=== PATIENT | male | born 1970 | race Caucasian/White ===

== ENCOUNTER 2017-11-07 17:09 | Emergency (ER) | payer BC, OTHER ==
[2017-11-07] MEDS ORDERED: Aspirin 81 MG Tab.Chew PO ONE (17:50)
[2017-11-07] MEDS ORDERED: Alum Hydrox/Mag Hydrox/Simeth 30 ML, Lidocaine 2% 15 ML PO ONE ×2 (17:58)
--- NOTE | 2017-11-07 17:58 | EDM.PDOC ---
<TulioGabriella kiser - Last Filed: 11/07/17 18:02> ED HPI GENERAL MEDICAL PROBLEM - General Chief Complaint: Chest Pain Stated Complaint: CHEST PAIN Time Seen by Provider: 11/07/17 17:54 Source of Information: Reports: Patient History Limitations: Reports: No Limitations - History of Present Illness INITIAL COMMENTS - FREE TEXT/NARRATIVE: Patient is a 46 YO male who presents today for chest pain. He states this started about 11 this morning. He described the pain as pressure in the left chest about 4 intercostal space mid clavicular which radiates around to his back and also has some pain in the left medial arm. Nothing seems to make the pain worse and nothing makes it better. He has GERD and did take several TUMS this morning which did not improve the pain. He was placed on omeprazole for 14 days which relieved his pain. He has now been off this for 1.5 weeks and the pain has returned. He states this pain that he is experiencing does not feel like GERD to him. He has no personal history of heart disease, HTN or diabetes. He also denies family history of heart disease. He denies smoking but does chew 1 can every 4 days, drinks 1 beer per night and denies any recreational drug use. He denies SOB, dizziness, cough, fever, chills, or diaphoresis. He states he has not been sick within the last couple weeks. - Related Data Allergies Allergy/AdvReac Type Severity Reaction Status Date / Time No Known Allergies Allergy Verified 11/07/17 17:19 Home Meds: Home Meds Lisinopril [Zestril] 20 mg PO ASDIRECTED 12/28/13 [History] Metoprolol Succinate [Toprol XL] 25 mg PO DAILY 12/28/13 [History] Sertraline HCl [Zoloft] 50 mg PO DAILY 12/28/13 [History] Course - Vital Signs Last Recorded V/S: Last Vital Signs Temp 97.9 F 11/07/17 17:24 Pulse 69 11/07/17 17:24 Resp 22 H 11/07/17 17:24 BP 143/86 H 11/07/17 17:24 Pulse Ox 100 11/07/17 17:24 - Orders/Labs/Meds Orders: Active Orders 24 hr Category Date Time Status EKG 12 Lead [EKG Documentation Completion] [RC] STAT Care 11/07/17 17:49 Active Labs: Laboratory Tests 11/07/17 11/07/17 11/07/17 Range/Units 17:20 17:20 17:20 WBC 11.07 H (4.23-9.07) K/mm3 RBC 5.16 (4.63-6.08) M/mm3 Hgb 16.0 (13.7-17.5) gm/L Hct 46.1 (40.1-51.0) % MCV 89.3 (79.0-92.2) fl MCH 31.0 (25.7-32.2) pg MCHC 34.7 (32.2-35.5) g/dl RDW Std Deviation 41.7 (35.1-43.9) fL Plt Count 264 (163-337) K/mm3 MPV 11.5 (9.4-12.3) fl Neutrophils % (Manual) 44 (40-60) % Band Neutrophils % 0 (0-10) % Lymphocytes % (Manual) 36 (20-40) % Atypical Lymphs % 0 % Monocytes % (Manual) 20 H (2-10) % Eosinophils % (Manual) 0 L (0.8-7.0) % Basophils % (Manual) 0 L (0.2-1.2) Platelet Estimate Adequate Plt Morphology Comment Normal RBC Morph Comment Normal D-Dimer, Quantitative < 0.19 L (0.19-0.50) mg/L Sodium (136-145) mEq/L Potassium (3.5-5.1) mEq/L Chloride (98-107) mEq/L Carbon Dioxide (21-32) mEq/L Anion Gap (5-15) BUN (7-18) mg/dL Creatinine (0.7-1.3) mg/dL Est Cr Clr Drug Dosing mL/min Estimated GFR (MDRD) (>60) mL/min BUN/Creatinine Ratio (14-18) Glucose (74-106) mg/dL Calcium (8.5-10.1) mg/dL Total Bilirubin (0.2-1.0) mg/dL AST (15-37) U/L ALT (16-63) U/L Alkaline Phosphatase (46-116) U/L CK-MB (CK-2) 1.1 (0-3.6) ng/ml Troponin I < 0.017 (0.00-0.056) ng/mL C-Reactive Protein < 0.2 (<1.0) mg/dL Total Protein (6.4-8.2) g/dl Albumin (3.4-5.0) g/dl Globulin gm/dL Albumin/Globulin Ratio (1-2) 11/07/17 Range/Units 17:20 WBC (4.23-9.07) K/mm3 RBC (4.63-6.08) M/mm3 Hgb (13.7-17.5) gm/L Hct (40.1-51.0) % MCV (79.0-92.2) fl MCH (25.7-32.2) pg MCHC (32.2-35.5) g/dl RDW Std Deviation (35.1-43.9) fL Plt Count (163-337) K/mm3 MPV (9.4-12.3) fl Neutrophils % (Manual) (40-60) % Band Neutrophils % (0-10) % Lymphocytes % (Manual) (20-40) % Atypical Lymphs % % Monocytes % (Manual) (2-10) % Eosinophils % (Manual) (0.8-7.0) % Basophils % (Manual) (0.2-1.2) Platelet Estimate Plt Morphology Comment RBC Morph Comment D-Dimer, Quantitative (0.19-0.50) mg/L Sodium 138 (136-145) mEq/L Potassium 3.9 (3.5-5.1) mEq/L Chloride 101 (98-107) mEq/L Carbon Dioxide 29 (21-32) mEq/L Anion Gap 11.9 (5-15) BUN 12 (7-18) mg/dL Creatinine 1.0 (0.7-1.3) mg/dL Est Cr Clr Drug Dosing 103.47 mL/min Estimated GFR (MDRD) > 60 (>60) mL/min BUN/Creatinine Ratio 12.0 L (14-18) Glucose 106 (74-106) mg/dL Calcium 9.6 (8.5-10.1) mg/dL Total Bilirubin 0.6 (0.2-1.0) mg/dL AST 30 (15-37) U/L ALT 33 (16-63) U/L Alkaline Phosphatase 56 (46-116) U/L CK-MB (CK-2) (0-3.6) ng/ml Troponin I (0.00-0.056) ng/mL C-Reactive Protein (<1.0) mg/dL Total Protein 7.7 (6.4-8.2) g/dl Albumin 4.4 (3.4-5.0) g/dl Globulin 3.3 gm/dL Albumin/Globulin Ratio 1.3 (1-2) Meds: Medications Discontinued Medications Generic Name Dose Route Start Last Admin Trade Name Beata PRN Reason Stop Dose Admin Aspirin 324 mg 11/07/17 17:50 11/07/17 17:59 Aspirin PO 11/07/17 17:51 324 mg ONETIME ONE Administration Al Hydroxide/Mg Hydroxide 30 0 ml 11/07/17 17:58 11/07/17 18:04 ml/ Lidocaine HCl 15 ml PO 11/07/17 17:59 45 ml ONETIME ONE Administration Sodium Chloride 1,000 mls @ 100 mls/hr 11/07/17 18:00 11/07/17 17:58 Normal Saline IV 100 mls/hr ASDIRECTED DAKOTAH Administration Departure - Departure Disposition: Home, Self-Care 01 Clinical Impression: Anterior chest wall pain GERD (gastroesophageal reflux disease) Qualifiers: Esophagitis presence: esophagitis presence not specified Qualified Code(s): K21.9 - Gastro-esophageal reflux disease without esophagitis Instructions: Food Choices for Gastroesophageal Reflux Disease, Adult, Chest Wall Pain, [id number], Gastroesophageal Reflux Disease, Adult, [id number] Referrals: Kike Soto Jr, MD [Primary Care Provider] - Forms: ED Department Discharge Additional Instructions: Suspect cause of anterior lateral chest discomfort is musculoskeletal in nature. Treatment will be Tylenol 650 mg every 4-6 hours as needed for pain. Refrain from any activities that cause worsening pain. In addition component of the discomfort may be associated with GERD. Start taking Prilosec 20 mg half- hour prior to eating breakfast every morning. Do not eat or drink within 4 hours ago in the bed. Minimize intake of caffeinated beverages, chocolates, spicy foods, or any other aggravating foods. Follow-up with your primary care provider in the next week. Return to the ED if you develop any new or worsening symptoms. - My Orders Last 24 Hours: My Active Orders 11/07/17 17:49 EKG 12 Lead [EKG Documentation Completion] [RC] STAT - Assessment/Plan Last 24 Hours: My Active Orders 11/07/17 17:49 EKG 12 Lead [EKG Documentation Completion] [RC] STAT <Gokul Kelley O - Last Filed: 11/08/17 08:40> ED HPI GENERAL MEDICAL PROBLEM - General Source of Information: Reports: Patient History Limitations: Reports: No Limitations Middle Chest Pain Score (Numeric/FACES): 4 Past Medical History HEENT History: Reports: Impaired Vision Cardiovascular History: Reports: Hypertension Gastrointestinal History: Reports: GERD Neurological History: Reports: Concussion Psychiatric History: Reports: Anxiety - Past Surgical History GI Surgical History: Reports: Colonoscopy, EGD Social & Family History - Family History Family Medical History: Noncontributory Cardiac: Reports: Hypertension, [place] Endocrine/Metabolic: Reports: Diabetes, type II Oncologic: Reports: Breast - Tobacco Use Years of Tobacco use: 20 Packs/Tins Daily: 0.2 - Caffeine Use Caffeine Use: Reports: Coffee - Alcohol Use Days Per Week of Alcohol Use: 7 Number of Drinks Per Day: 2 Total Drinks Per Week: 14 - Recreational Drug Use Recreational Drug Use: No ED ROS GENERAL - Review of Systems Review Of Systems: See Below Constitutional: Denies: Fever, Chills, Decreased Appetite HEENT: Reports: No Symptoms Respiratory: Reports: Pleuritic Chest Pain (left sided). Denies: Shortness of Breath, Cough, Sputum, Hemoptysis Cardiovascular: Reports: Chest Pain. Denies: Dyspnea on Exertion, Lightheadedness, Palpitations, Syncope GI/Abdominal: Reports: Abdominal Pain (faint RUQ pain, gallbladder has been worked up with no abnormal finding. ) Musculoskeletal: Reports: Arm Pain (left arm discomfort) Skin: Reports: No Symptoms Neurological: Reports: No Symptoms Psychiatric: Reports: No Symptoms ED EXAM, GENERAL - Physical Exam Exam: See Below Exam Limited By: No Limitations General Appearance: Alert, WD/WN, No Apparent Distress Ears: Hearing Grossly Normal Nose: Normal Inspection Throat/Mouth: Normal Voice, No Airway Compromise Neck: Normal Inspection, Supple Respiratory/Chest: No Respiratory Distress, Lungs Clear, Normal Breath Sounds, No Accessory Muscle Use, Other (Tenderness along the lateral aspect of the 3 and 4th rib with palpation. no ecchymosis, rash, bony abnormalities, or swelling.) Cardiovascular: Normal Peripheral Pulses, Regular Rate, Rhythm, No Murmur Peripheral Pulses: 4+: Radial (L), Radial (R) GI/Abdominal: Normal Bowel Sounds, Soft, Non-Tender, No Organomegaly, No Distention Back Exam: Normal Inspection Extremities: Normal Inspection, Normal Range of Motion, Non-Tender Neurological: Alert, Oriented, CN II-XII Intact, Normal Cognition, No Motor/ Sensory Deficits Psychiatric: Normal Affect, Normal Mood Skin Exam: Warm, Dry, Intact, Normal Color, No Rash Course - Orders/Labs/Meds Labs: Laboratory Tests 11/07/17 11/07/17 11/07/17 Range/Units 17:20 17:20 17:20 WBC 11.07 H (4.23-9.07) K/mm3 RBC 5.16 (4.63-6.08) M/mm3 Hgb 16.0 (13.7-17.5) gm/L Hct 46.1 (40.1-51.0) % MCV 89.3 (79.0-92.2) fl MCH 31.0 (25.7-32.2) pg MCHC 34.7 (32.2-35.5) g/dl RDW Std Deviation 41.7 (35.1-43.9) fL Plt Count 264 (163-337) K/mm3 MPV 11.5 (9.4-12.3) fl Neutrophils % (Manual) 44 (40-60) % Band Neutrophils % 0 (0-10) % Lymphocytes % (Manual) 36 (20-40) % Atypical Lymphs % 0 % Monocytes % (Manual) 20 H (2-10) % Eosinophils % (Manual) 0 L (0.8-7.0) % Basophils % (Manual) 0 L (0.2-1.2) Platelet Estimate Adequate Plt Morphology Comment Normal RBC Morph Comment Normal D-Dimer, Quantitative < 0.19 L (0.19-0.50) mg/L Sodium (136-145) mEq/L Potassium (3.5-5.1) mEq/L Chloride (98-107) mEq/L Carbon Dioxide (21-32) mEq/L Anion Gap (5-15) BUN (7-18) mg/dL Creatinine (0.7-1.3) mg/dL Est Cr Clr Drug Dosing mL/min Estimated GFR (MDRD) (>60) mL/min BUN/Creatinine Ratio (14-18) Glucose (74-106) mg/dL Calcium (8.5-10.1) mg/dL Total Bilirubin (0.2-1.0) mg/dL AST (15-37) U/L ALT (16-63) U/L Alkaline Phosphatase (46-116) U/L CK-MB (CK-2) 1.1 (0-3.6) ng/ml Troponin I < 0.017 (0.00-0.056) ng/mL C-Reactive Protein < 0.2 (<1.0) mg/dL Total Protein (6.4-8.2) g/dl Albumin (3.4-5.0) g/dl Globulin gm/dL Albumin/Globulin Ratio (1-2) /07/27 Range/Units 17:20 WBC (4.23-9.07) K/mm3 RBC (4.63-6.08) M/mm3 Hgb (13.7-17.5) gm/L Hct (40.1-51.0) % MCV (79.0-92.2) fl MCH (25.7-32.2) pg MCHC (32.2-35.5) g/dl RDW Std Deviation (35.1-43.9) fL Plt Count (163-337) K/mm3 MPV (9.4-12.3) fl Neutrophils % (Manual) (40-60) % Band Neutrophils % (0-10) % Lymphocytes % (Manual) (20-40) % Atypical Lymphs % % Monocytes % (Manual) (2-10) % Eosinophils % (Manual) (0.8-7.0) % Basophils % (Manual) (0.2-1.2) Platelet Estimate Plt Morphology Comment RBC Morph Comment D-Dimer, Quantitative (0.19-0.50) mg/L Sodium 138 (136-145) mEq/L Potassium 3.9 (3.5-5.1) mEq/L Chloride 101 (98-107) mEq/L Carbon Dioxide 29 (21-32) mEq/L Anion Gap 11.9 (5-15) BUN 12 (7-18) mg/dL Creatinine 1.0 (0.7-1.3) mg/dL Est Cr Clr Drug Dosing 103.47 mL/min Estimated GFR (MDRD) > 60 (>60) mL/min BUN/Creatinine Ratio 12.0 L (14-18) Glucose 106 (74-106) mg/dL Calcium 9.6 (8.5-10.1) mg/dL Total Bilirubin 0.6 (0.2-1.0) mg/dL AST 30 (15-37) U/L ALT 33 (16-63) U/L Alkaline Phosphatase 56 (46-116) U/L CK-MB (CK-2) (0-3.6) ng/ml Troponin I (0.00-0.056) ng/mL C-Reactive Protein (<1.0) mg/dL Total Protein 7.7 (6.4-8.2) g/dl Albumin 4.4 (3.4-5.0) g/dl Globulin 3.3 gm/dL Albumin/Globulin Ratio 1.3 (1-2) - Re-Assessments/Exams Free Text/Narrative Re-Assessment/Exam: Patient is a 46 year old male who presents to the E.D. complaining of left lateral chest wall pain increased with palpation. Pain does radiate down the left arm as well. States the pain came on at 11 am today. Initially believed it was related to acid reflux and took 8 tums with no relief. States one month prior was taking a PPI for two weeks and since stopping has noticed increased acid reflux over the last two weeks. States the pain is mild to moderate intensity. Does not recall any trauma or specific activity that would have caused the pain. Normally has RUQ pain described as minimal. Has had a full work up of his GB with no issues noted. This is unchanged. Denies fever, cough , sob, n/v, hx pe/dvt, or any additional complaints. patient admits he does not go to the doctor that often and does not have a first degree relative with heart disease. He chews tobacco. Alcohol social. Denies any recreational drug use. PMH: GERD, HTN, anxiety. Current medications: zestril, toprol xl, zoloft. Patient was in the ED 44 minutes prior to evaluation. Dr. Rodrigues has already placed orders. IV established within normal saline 100 mls an hour and aspirin 324 mg by mouth. I ordered GI cocktail PO. Initial labs and studies include CBC, chem 14, CRP, CK-MB, troponin, d-dimer, chest x-ray one view, and EKG. EKG revealed: Sinus rhythm at a rate of 61. QT mildly prolonged. T-wave inversion in leads 3 and flattened in aVF. No signs of ischemia. Chest x-ray impression: No acute findings noted. Final interpretation is pending. Reviewed with Dr. Rodrigues. Labs revealed:CBC was essentially normal. D-Dimer was <0.19. CKMB is 1.1. Troponin <0.017. CRP <0.2. CMP was not initially ordered. 11/07/17 19:18 Reassessment, patients pain has improved with the GI cocktail. VSS. Pain was reproducible with palpation. Suspect cause musculoskeletal in nature all though some of the symptoms did improve with GI cocktail. Patient will start prilosec 20mg PO 1/2 hr prior to breakfast every a.m. Discharge instructions as documented. 11/07/17 19:37 CMP within normal limits. Departure - Departure Time of Disposition: 19:22 Condition: Good
[2017-11-07] MEDS ORDERED: Sodium Chloride 0.9% 1,000 ML IV SCH (18:00)
--- NOTE | 2017-11-08 07:25 | CR ---
Chest: Portable view of the chest was obtained. Comparison: No previous study. Heart size and mediastinum are normal. Lungs are clear. Bony structures are unremarkable. Impression: 1. Nothing acute is seen on portable chest x-ray. Diagnostic code #1
== END 2017-11-07 19:40 | disposition home or self-care (01) ==
LOC: JD.ED 17:09
DX: K21.9 Gastro-esophageal reflux disease without esophagitis (principal); I10 Essential (primary) hypertension; Z79.899 Other long term (current) drug therapy; Z79.82 Long term (current) use of aspirin
CPT/HCPCS: 36415; 71045; 80053; 82553; 84484; 85025; 85379; 86140; 93005; 96360; 96361; 99285; A9270; J7040; 93010; 99283

== ENCOUNTER 2017-11-19 21:42 | Emergency (ER) | payer OTHER ==
[2017-11-19] MEDS ORDERED: Bupivacaine 0.25% 10 ML SDV INJECT ONE (22:02)
[2017-11-19] MEDS ORDERED: Lidocaine 1% 50 ML MDV INJECT ONE (22:02)
[2017-11-19] MEDS ORDERED: Bupivacaine 0.5% 10 ML SDV ONE (22:05)
--- NOTE | 2017-11-19 23:14 | EDM.PDOC ---
ED HPI GENERAL MEDICAL PROBLEM - General Chief Complaint: Upper Extremity Injury/Pain Stated Complaint: HAND INJURY Time Seen by Provider: 11/19/17 22:00 Source of Information: Reports: Patient History Limitations: Reports: No Limitations - History of Present Illness INITIAL COMMENTS - FREE TEXT/NARRATIVE: 47-year-old male presents for evaluation and treatment of injury to the left hand fifth finger. Injury occurred around 1400 this afternoon. Patient was roping. Please see got his finger caught in the rope. He is reporting discomfort to the left hand fifth finger greatest at the PIP joint. He's been unable to fully is straightening the finger. He wrapped the finger and take this afternoon. Became concerned when he attempted to remove the tape this evening and developed significant discomfort with removal of this. Therefore he decided to present to the ER. Patient reports the finger does feel numb and tingling has good sensation. patient is left-handed. Onset: Today Location: Reports: Upper Extremity, Left Left Hand Pain Score (Numeric/FACES): 8 - Related Data Allergies Allergy/AdvReac Type Severity Reaction Status Date / Time No Known Allergies Allergy Verified 11/19/17 21:52 Home Meds: Home Meds Lisinopril [Zestril] 20 mg PO ASDIRECTED 12/28/13 [History] Metoprolol Succinate [Toprol XL] 25 mg PO DAILY 12/28/13 [History] Sertraline HCl [Zoloft] 50 mg PO DAILY 12/28/13 [History] Past Medical History HEENT History: Reports: Impaired Vision Cardiovascular History: Reports: Hypertension Gastrointestinal History: Reports: GERD Neurological History: Reports: Concussion Psychiatric History: Reports: Anxiety - Past Surgical History GI Surgical History: Reports: Colonoscopy, EGD Social & Family History - Family History Family Medical History: Noncontributory Cardiac: Reports: Hypertension, [place] Endocrine/Metabolic: Reports: Diabetes, type II Oncologic: Reports: Breast - Tobacco Use Smoking Status *Q: Never Smoker - Caffeine Use Caffeine Use: Reports: Coffee - Recreational Drug Use Recreational Drug Use: No Review of Systems - Review of Systems Review Of Systems: See Below Musculoskeletal: Reports: Hand Pain (left hand 5th finger) Neurological: Reports: Numbness, Tingling ED EXAM, GENERAL - Physical Exam Exam: See Below Exam Limited By: No Limitations General Appearance: Alert, WD/WN, No Apparent Distress Respiratory/Chest: No Respiratory Distress Cardiovascular: Normal Peripheral Pulses, Regular Rate, Rhythm Peripheral Pulses: 2+: Radial (L) Extremities: Normal Capillary Refill, Other (Deformity to the left hand fifth finger at the PIP joint; reduced range of motion. Fingers in a flexed position at approximately 90 unable to fully extend the finger. Mild swelling to the finger at the PIP joint.) Neurological: Alert, Oriented, Normal Cognition Psychiatric: Normal Affect, Normal Mood Skin Exam: Warm, Dry, Normal Color Course - Vital Signs Last Recorded V/S: Last Vital Signs Temp 36.6 C 11/19/17 21:49 Pulse 67 11/19/17 21:49 Resp 16 11/19/17 21:49 BP 125/80 11/19/17 21:49 Pulse Ox 97 11/19/17 21:49 - Orders/Labs/Meds Orders: Active Orders 24 hr Category Date Time Status Fingers Fifth Digit Lt F4 [CR] Stat Exams 11/19/17 22:12 Ordered Fingers Fifth Digit Lt F4 [CR] Stat Exams 11/19/17 22:41 Ordered Meds: Medications Discontinued Medications Generic Name Dose Route Start Last Admin Trade Name Beata PRN Reason Stop Dose Admin Bupivacaine HCl 10 ml 11/19/17 22:02 11/19/17 22:09 Sensorcaine-Mpf 0.25% INJECT 11/19/17 22:03 Not Given ONETIME ONE Bupivacaine HCl Confirm 11/19/17 22:05 11/19/17 22:09 Sensorcaine-Mpf 0.5% Administered 11/19/17 22:06 10 ml Dose Administration 10 ml .ROUTE .STK-MED ONE Lidocaine HCl 50 ml 11/19/17 22:02 Xylocaine 1% INJECT 11/19/17 22:03 ONETIME ONE - Radiology Interpretation Free Text/Narrative:: X-rays of the left hand finger initially show a dislocated joint. No fracture appreciated. Post reduction x-rays show good placement. - Re-Assessments/Exams Free Text/Narrative Re-Assessment/Exam: 11/19/17 23:10 The initial x-rays did not show any fracture, Dislocation of the left hand PIP joint. I then gave the patient a digital block with 5cc of 0.25% marcaine. Patient reports good anesthetic with the digital block. I was then able then to reduce the finger with traction. A palpable pop was felt and the finger was felt to be in place. When I performed range of motion with the finger the finger then again dislocated at the PIP joint. It was successfully reduced again , however, with any range of motion the joint dislocated. I then carol taped the fourth and fifth fingers together to obtain postreduction x-rays which showed adequate placement. No fracture. I then had nursing staff applied aluminum form splint to the finger and carol tape the 4th and 5th fingers. the patient likely has ligamentous injury due to the spontaneous dislocation with any range of motion. He will have to see orthopedics. I referred him to Dr. Dahl, hand specialist in [place] as he may require surgical fixation of this. He is encouraged to call them on Monday for an appointment. Offered something for pain but feels that with immobilization he has good pain control. Encouraged ice. Discharge instructions as documented. Departure - Departure Time of Disposition: 23:09 Disposition: Home, Self-Care 01 Condition: Fair Clinical Impression: Dislocation of proximal interphalangeal joint of left little finger, initial encounter, Ligament tear - Discharge Information Instructions: Finger or Thumb Dislocation, [id number] Referrals: Kike Soto Jr, MD [Primary Care Provider] - Antonio Dahl MD [Consulting Physician] - Forms: ED Department Discharge Additional Instructions: Keep the splint on and keep the finger immobile. [id number] Tylenol or Motrin seen for pain. Follow-up with Dr. Dahl, hand specialist at [facility] in [place]. Call [phone] to schedule an appointment with him. Please let him know that you were seen in the ER and had a dislocation of the left hand fifth finger PIP joint with Suspected ligamentous injury, Spontaneous repeated dislocation of the joint with movement. Please return to the ER if your symptoms change or worsen. - My Orders Last 24 Hours: My Active Orders 11/19/17 22:12 Fingers Fifth Digit Lt F4 [CR] Stat 11/19/17 22:41 Fingers Fifth Digit Lt F4 [CR] Stat - Assessment/Plan Last 24 Hours: My Active Orders 11/19/17 22:12 Fingers Fifth Digit Lt F4 [CR] Stat 11/19/17 22:41 Fingers Fifth Digit Lt F4 [CR] Stat
--- NOTE | 2017-11-20 07:57 | CR ---
Left fifth finger: Two views of the left fifth finger were obtained. Comparison: Prior study performed earlier on same day (10:17 PM). Previous dislocation involving the PIP joint has been reduced in the interim from prior study. Bony structures appear anatomic in alignment. Soft tissue swelling is noted. No fracture or other bony abnormality is seen. Impression: 1. Previous dislocation has been reduced. 2. Soft tissue swelling. Diagnostic code #2
--- NOTE | 2017-11-20 07:57 | CR ---
Left fifth finger: Four views of the left fifth finger were obtained. Comparison: No prior study. Dislocation is noted of the PIP joint. Middle phalanx is subluxed anteriorly in relation to the proximal phalanx. No fracture or other abnormality is seen. Impression: 1. Dislocated PIP joint. Diagnostic code #3
== END 2017-11-19 23:20 | disposition home or self-care (01) ==
LOC: JD.ED 21:42
DX: S63.287A Dislocation of proximal interphalangeal joint of left little finger, initial encounter (principal); S63.637A Sprain of interphalangeal joint of left little finger, initial encounter; W23.0XXA Caught, crushed, jammed, or pinched between moving objects, initial encounter; I10 Essential (primary) hypertension; K21.9 Gastro-esophageal reflux disease without esophagitis; F41.9 Anxiety disorder, unspecified; Z79.899 Other long term (current) drug therapy
CPT/HCPCS: 26770; 64450; 73140-26-F4; 73140-F4; 99282-25; 99283-25

== ENCOUNTER 2018-08-04 11:34 | Emergency (ER) | payer OTHER ==
--- NOTE | 2018-08-04 12:22 | EDM.PDOC ---
ED HPI GENERAL MEDICAL PROBLEM - General Chief Complaint: Chest Pain Stated Complaint: HEART RACING Time Seen by Provider: 08/04/18 12:04 Source of Information: Reports: Patient, RN Notes Reviewed - History of Present Illness INITIAL COMMENTS - FREE TEXT/NARRATIVE: stopped taking metropolol about 5 days ago, has been having intermitent palpiations the last 3 days. No chest pain or difficulty breathing. Linsinopril was increased from 10 to 20 mg daily. No dizziness or other unusual sx. Chest Pain Score (Numeric/FACES): 4 - Related Data Allergies Allergy/AdvReac Type Severity Reaction Status Date / Time No Known Allergies Allergy Verified 11/19/17 21:52 Home Meds: Home Meds Lisinopril [Zestril] 20 mg PO ASDIRECTED 12/28/13 [History] Sertraline HCl [Zoloft] 50 mg PO DAILY 12/28/13 [History] Past Medical History HEENT History: Reports: Impaired Vision Cardiovascular History: Reports: Hypertension, Other (See Below) Other Cardiovascular History: racing heart Gastrointestinal History: Reports: GERD Neurological History: Reports: Concussion Psychiatric History: Reports: Anxiety - Past Surgical History GI Surgical History: Reports: Colonoscopy, EGD Social & Family History - Family History Family Medical History: Noncontributory Cardiac: Reports: Hypertension, [place] Endocrine/Metabolic: Reports: Diabetes, type II Oncologic: Reports: Breast - Tobacco Use Smoking Status *Q: Current Every Day Smoker Years of Tobacco use: 30 Packs/Tins Daily: 0.3 - Caffeine Use Caffeine Use: Reports: Coffee - Recreational Drug Use Recreational Drug Use: No ED ROS GENERAL - Review of Systems Review Of Systems: See Below Constitutional: Denies: Fever, Chills, Diaphoresis HEENT: Reports: No Symptoms Respiratory: Denies: Shortness of Breath, Pleuritic Chest Pain Cardiovascular: Reports: Palpitations. Denies: Chest Pain GI/Abdominal: Denies: Abdominal Pain, Nausea, Vomiting Musculoskeletal: Denies: Neck Pain, Shoulder Pain, Arm Pain, Back Pain Skin: Reports: No Symptoms Neurological: Reports: No Symptoms ED EXAM, GENERAL - Physical Exam Exam: See Below General Appearance: Alert, No Apparent Distress Eye Exam: Bilateral Eye: PERRL Throat/Mouth: Normal Inspection, Normal Oropharynx Head: Atraumatic. No: Facial Swelling Neck: Supple, Full Range of Motion Respiratory/Chest: No Respiratory Distress, Lungs Clear, Normal Breath Sounds Cardiovascular: Regular Rate, Rhythm GI/Abdominal: Soft, Non-Tender Back Exam: No: CVA Tenderness (L), CVA Tenderness (R) Extremities: Normal Inspection. No: Pedal Edema, Leg Pain, Increased Warmth, Redness Neurological: Alert, Oriented, No Motor/Sensory Deficits Skin Exam: Warm, Dry, Normal Color Course - Vital Signs Last Recorded V/S: Last Vital Signs Temp 97.8 F 08/04/18 11:56 Pulse 72 08/04/18 12:40 Resp 12 08/04/18 12:40 BP 122/83 08/04/18 12:40 Pulse Ox 98 08/04/18 12:40 - Re-Assessments/Exams Free Text/Narrative Re-Assessment/Exam: 08/05/18 14:05 moniter showed NSR, rate in the 70's here in the ED, has not been checking his pulse with palpitations, discharge instr. as documented. Departure - Departure Time of Disposition: 12:20 Disposition: Home, Self-Care 01 Condition: Fair Clinical Impression: Palpitations Instructions: Palpitations, [id number] Referrals: Kristina Burkett NP [Primary Care Provider] - Forms: ED Department Discharge Additional Instructions: Continue lisinopril as prescribed, drink plenty of water to maintain hydration, eat a healthy diet and exercise regularly, check your pulse or record your blood pressure and heart rate with an electronic blood pressure unit and keep a log for your medical provider if and when you do have further palpitation symptoms. If your heart rate is running more than 110 and 120 for more than 5- 10 minutes return to ED as needed, otherwise see your provider in about 2 weeks as planned.
== END 2018-08-04 12:45 | disposition home or self-care (01) ==
LOC: JD.ED 11:34
DX: R00.2 Palpitations (principal); I10 Essential (primary) hypertension; F41.9 Anxiety disorder, unspecified; F17.210 Nicotine dependence, cigarettes, uncomplicated; Z79.899 Other long term (current) drug therapy
CPT/HCPCS: 99284